=== PATIENT | male | born 1950 | race Caucasian/White ===

== ENCOUNTER 2018-02-20 08:04 | Observation (INO) | payer MEDICARE, OTHER ==
--- NOTE | 2018-02-20 08:21 | ED Physician Documentation ---
PD HPI TRUNK INJURY - Stated complaint Stated Complaint: RT SIDE PX/GLF - Chief complaint Chief Complaint: Trauma Ch/Bk - History obtained from History obtained from: Patient, Family - History of Present Illness Location: Posterior chest, Right chest Type of injury: Fall Timing - onset: How many days ago (4) Timing - duration: Days (4) Timing - details: Abrupt onset, Still present Quality: Pain, Spasm, Sharp Improved by: Rest Worsened by: Moving, Palpating Associated symtptoms: No: Weakness, Numbness, Tingling, Swelling, Discoloration , Feel faint, Syncope Where injury occured: Home Similar symptoms before: Has not had sx before Recently seen: Not recently seen - Additional information Additional information: 67-year-old male is visiting the [place] in a RV and 4 nights ago he went to take off his cargo shorts and fell in the RV landing on his right side against the edge of a piece of furniture. He has pain in his right lower rib cage and can hear popping and clicking. He was considering returning home today and decided to delay his travel until he was evaluated. He normally lives in [place]. He has had some coughing and feels he may have coughed up some blood. He has taken some hydrocodone the last 2 mornings but has not been taking aleve or ibuprofen. Review of Systems Constitutional: denies: Fever Eyes: denies: Decreased vision Ears: denies: Ear pain Nose: denies: Rhinorrhea / runny nose, Congestion Throat: denies: Sore throat Cardiac: reports: Chest pain / pressure. denies: Palpitations, Pedal edema, Calf pain Respiratory: reports: Cough, Hemoptysis. denies: Dyspnea GI: denies: Abdominal Pain, Nausea, Vomiting : denies: Dysuria, Frequency Skin: denies: Rash Musculoskeletal: reports: Back pain. denies: Neck pain, Extremity pain PD PAST MEDICAL HISTORY - Present Medications Home Medications: Ambulatory Orders Medication Instructions Recorded Confirmed Atenolol 50 mg PO DAILY 02/20/18 02/20/18 Lovastatin 20 mg PO DAILY 02/20/18 02/20/18 - Allergies Allergies/Adverse Reactions: Allergies Allergy/AdvReac Type Severity Reaction Status Date / Time No Known Drug Allergies Allergy Verified 02/20/18 08:27 PD ED PE NORMAL - Vitals Vital signs reviewed: Yes (hypertensive ) - General General: Alert and oriented X 3, No acute distress, Well developed/nourished - HEENT HEENT: Atraumatic, PERRL, EOMI - Neck Neck: Supple, no meningeal sign, No bony TTP - Cardiac Cardiac: RRR, No murmur - Respiratory Respiratory: No respiratory distress, Other (Rhonchi and crackling in the right lower quadrant with correspondin tenderness to the right lateral chest wall and audible clicking of fractured ribs. ) - Abdomen Abdomen: Soft, Non tender - Back Back: No CVA TTP, No spinal TTP - Derm Derm: Normal color, Warm and dry, No rash - Extremities Extremities: No deformity, No edema - Neuro Neuro: Alert and oriented X 3, is manager 2-12 intact, No motor deficit, No sensory deficit Eye Opening: Spontaneous Motor: Obeys Commands Verbal: Oriented GCS Score: 15 - Psych Psych: Normal mood, Normal affect Results - Vitals Vitals: Vital Signs - 24 hr 02/20/18 02/20/18 08:08 09:53 Temperature 36.4 C L Heart Rate 58 L 57 L Respiratory 18 20 Rate Blood Pressure 208/90 H 166/76 H O2 Saturation 94 96 Oxygen O2 Source Room air - Labs Labs: Laboratory Tests 02/20/18 02/20/18 02/20/18 08:30 08:30 08:30 WBC 10.2 RBC 3.57 L Hgb 13.4 L Hct 38.5 L MCV 107.6 H MCH 37.6 H MCHC 35.0 RDW 14.9 Plt Count 143 MPV 9.6 Neut # (Auto) 8.5 H Lymph # (Auto) 0.6 L [place] # (Auto) 0.9 Eos # (Auto) 0.1 Baso # (Auto) 0.0 Absolute Nucleated RBC 0.00 Nucleated RBC % 0.0 Sodium 131 L Potassium 3.5 Chloride 97 L Carbon Dioxide 25 Anion Gap 9.0 BUN 16 Creatinine 0.8 Estimated GFR (MDRD) 96 Glucose 155 H Calcium 9.2 Total Bilirubin 1.5 H AST 48 H ALT 34 Alkaline Phosphatase 86 Troponin I < 0.04 Total Protein 7.5 Albumin 3.8 Globulin 3.7 Albumin/Globulin Ratio 1.0 Lipase 67 H - Rads (name of study) CT chest with Radiology: Prelim report reviewed (Impression: Right sixth to 11th displaced rib fractures because of causing small to moderate right middle lobe pneumothorax in the right chest wall subcutaneous emphysema. Right middle lobe atelectasis and small pleural effusion.), Discussed with rads, EMP read indepedently, See rad report PD MEDICAL DECISION MAKING - ED course Complexity details: reviewed results, re-evaluated patient, considered differential, d/w patient, d/w family ED course: 67 y/o male with a fall 4 days ago has sub-q air, rib fractures, and hemo- pneumothorax. Dr. Nguyen is consulted in the case at 09:54 and will come to the hospital to evaluate. The patient does not appear to be in distress and has significant findings on CT. He is admitted to observation under the care of the capable surgeon. - Sepsis Event Vital Signs: Vital Signs - 24 hr 02/20/18 02/20/18 08:08 09:53 Temperature 36.4 C L Heart Rate 58 L 57 L Respiratory 18 20 Rate Blood Pressure 208/90 H 166/76 H O2 Saturation 94 96 Oxygen O2 Source Room air Departure - Departure Disposition: ED Place in Observation Clinical Impression: Traumatic pneumohemothorax Qualifiers: Encounter type: initial encounter Qualified Code(s): S27.2XXA - Traumatic hemopneumothorax, initial encounter Rib fractures Qualifiers: Encounter type: initial encounter Rib fracture type: multiple ribs Fracture type: closed Laterality: right Qualified Code(s): S22.41XA - Multiple fractures of ribs, right side, initial encounter for closed fracture Discharge Date/Time: 02/20/18 10:58
[2018-02-20] MEDS ORDERED: IOPAMIDOL-300 100 ML VIAL ONE (08:36)
[2018-02-20 09:26] LABS: ALBUMIN 3.8 g/dL (3.2-5.5); BILIRUBIN,TOTAL 1.5 mg/dL (0.2-1.0); CALCIUM 9.2 mg/dL (8.5-10.3); CREATININE 0.8 mg/dL (0.6-1.2); TOTAL PROTEIN 7.5 g/dL (6.7-8.2)
[2018-02-20 09:29] LABS: BASOPHILS % (AUTO) 0.3 %; EOSINOPHILS # (AUTO) 0.1 10^3/uL (0.0-0.7); EOSINOPHILS % (AUTO) 0.8 %; HGB - HEMOGLOBIN 13.4 g/dL (14.0-18.0); LYMPHOCYTES # (AUTO) 0.6 10^3/uL (1.5-3.5); LYMPHOCYTES % (AUTO) 6.1 %; MEAN CORPUSCULAR HEMOGLOBIN 37.6 pg (27.0-31.0); MEAN CORPUSCULAR VOLUME 107.6 fL (80.0-94.0); MEAN PLATELET VOLUME 9.6 fL (7.4-11.4); MONOCYTES # (AUTO) 0.9 10^3/uL (0.0-1.0); MONOCYTES % (AUTO) 9.3 %; NEUTROPHILS # (AUTO) 8.5 10^3/uL (1.5-6.6); NEUTROPHILS % (AUTO) 83.5 %; PLT - PLATELET COUNT 143 10^3/uL (130-450); RED BLOOD COUNT 3.57 10^6/uL (4.70-6.10); RED CELL DISTRIBUTION WIDTH 14.9 % (12.0-15.0); WHITE BLOOD COUNT 10.2 x10^3/uL (4.8-10.8)
[2018-02-20] MEDS ORDERED: IOPAMIDOL-300 100 ML VIAL IVP ONE ×2 (09:54→10:09)
[2018-02-20] MEDS ORDERED: SODIUM CHLORIDE FLUSH 0.9% 10 ML SYRINGE IVP PRN (10:08)
[2018-02-20] MEDS ORDERED: oxyCODONE 5 MG TABLET PO PRN (10:11)
--- NOTE | 2018-02-20 10:12 | CT Report ---
Procedure Date: 02/20/2018 Accession Number: [id number] / [id number] Procedure: CT - Chest W/ CPT Code: FULL RESULT: EXAM: CT CHEST EXAM DATE: 02/20/2018 09:45 AM. CLINICAL HISTORY: Fall posterior rib fractures ? sub-q air. COMPARISONS: None. TECHNIQUE: Routine helical CT imaging was performed through the chest. IV contrast: 100 mL Isovue-300. Reconstructions: Coronal and sagittal. In accordance with CT protocol optimization, one or more of the following dose reduction techniques were utilized for this exam: automated exposure control, adjustment of mA and/or KV based on patient size, or use of iterative reconstructive technique. FINDINGS: Right lower neck and chest wall subcutaneous emphysema. Small to moderate right middle lobe pneumothorax and atelectasis due to displaced fractures of the right 6th-11th lateral ribs. Small right pleural effusion. Left chest clear. No mediastinal hematoma. Upper abdomen grossly unremarkable. IMPRESSION: Right 6th-11th displaced rib fractures, causing small to moderate right middle lobe pneumothorax and right chest wall subcutaneous emphysema. Right middle lobe atelectasis and small pleural effusion. RADIA
[2018-02-20] MEDS ORDERED: LIDOCAINE PATCH 5% TOP STA (10:13)
--- NOTE | 2018-02-20 10:21 | HISTORY & PHYSICAL EXAMINATION ---
Chief Complaint - Chief Complaint Chief Complaint: right sided rib fractures History of Present Illness - History of Present Illness HPI Comment/Other: This is a 67-year-old male who presented to the emergency department today after falling from a standing position 4 days ago. He states that he was in his RV and was taking off his shorts and lost his balance falling backwards and hitting his posterior thorax against a railing. He denies hitting any other part of his body. He denies any loss of consciousness. He has had progressive right sided back pain since his injury and eventually came to the emergency department today. He also complains of a persistent cough which is irritating him. He denies any shortness of breath or difficulty breathing. Upon evaluation in the emergency department he underwent a CT scan of the chest which demonstrates posterior right-sided rib fractures 6 through 11 with a moderately sized pneumothorax and a small hemothorax.Upon my evaluation the patient he has resting in bed comfortably in the sitting position without any shortness of breath. History - Past Medical History Cardiovascular: reports: Hypertension, High cholesterol, Pulmonary embolism GI: reports: Pancreatitis Other Past Medical History: throat cancer - Past Surgical History General: reports: Colonoscopy HEENT: reports: Cataracts Meds/Allgy - Home Medications Home Medications: Ambulatory Orders Medication Instructions Recorded Confirmed Atenolol 50 mg PO DAILY 02/20/18 02/20/18 Lovastatin 20 mg PO DAILY 02/20/18 02/20/18 - Allergies Allergies/Adverse Reactions: Allergies Allergy/AdvReac Type Severity Reaction Status Date / Time No Known Drug Allergies Allergy Verified 02/20/18 08:27 Review of Systems - Constitutional Constitutional: denies: Fatigue, Weakness - Cardiovascular Cariovascular: denies: Lightheadedness - Respiratory Respiratory: reports: Cough, Sputum production - Gastrointestinal Gastrointestinal: denies: Abdominal pain - Musculoskeletal Musculoskeletal: reports: Back pain - Neurological Neurological: denies: General weakness - Psychiatric Psychiatric: denies: Depression Exam - Vital Signs Reviewed Vital Signs: Yes Vital Signs: Vital Signs x48h Temp Pulse Resp BP Pulse Ox 02/20/18 09:53 57 L 20 166/76 H 96 02/20/18 08:08 36.4 C L 58 L 18 208/90 H 94 - Physical Exam General Appearance: positive: No acute distress Respiratory: positive: Other (Slightly diminished breath sounds on the right with associated crackles. Left-sided breath sounds normal.No palpable crepitance to the right chest wall.) Cardiovascular: positive: Regular rate & rhythm Peripheral Pulses: positive: 2+ Abdomen: positive: Non-tender Extremities: positive: No pedal edema Neurologic/Psychiatric: positive: Oriented x3 Conclusion/Plan - Problem List (1) Rib fractures Conclusion/Plan: The patient will be admitted for observation. Will obtain a chest x-ray now and one tomorrow to monitor the pnuemothorax for progression. As this is been 4 days since his injury and he does not display any signs of difficulty breathing or shortness of breath tube thoracostomy is not warranted at this time. If there is no progression of the pneumothorax on CXR he will not require thoracostomy tube placement, however, if progression occurs this will be performed. Additionally he will be provided Multimodal analgesics for pain control in the form of oxycodone, IV Tylenol, Toradol and lidocaine patch.. Respiratory therapy has been contacted and will instruct the patient on appropriate insentive spirometry use as well as obtaining a vital capacity for baseline analysis. The patient will be placed on supplemental oxygen. I explained to the patient that if his chest x-ray demonstrates an enlarging pneumothorax thoracostomy tube placement will be performed. Qualifiers: Encounter type: initial encounter Rib fracture type: multiple ribs Fracture type: closed Laterality: right Qualified Code(s): S22.41XA - Multiple fractures of ribs, right side, initial encounter for closed fracture - Lab Results Lab results reviewed: Yes Fish Bones: 02/20/18 08:30 02/20/18 08:30
[2018-02-20] MEDS: ACETAMINOPHEN 1,000 MG/100 ML 100 ML IV SCH ×3 (11:30→23:48)
--- NOTE | 2018-02-20 12:21 | XRAY Report ---
Procedure Date: 02/20/2018 Accession Number: [id number] / [id number] Procedure: XR - Chest 1 View X-Ray CPT Code: 46981 FULL RESULT: EXAM: CHEST RADIOGRAPHY, PORTABLE ONE VIEW EXAM DATE: 02/20/2018 10:56 AM. CLINICAL HISTORY: Evaluation of pneumothorax in a 67-year-old male post recent fall. COMPARISON: CT chest w/ 02/20/2018 9:39 AM. TECHNIQUE: 1047 hr AP upright portable view. FINDINGS: Lungs/Pleura: Small right pleural effusion/hemothorax again noted with infiltrate/atelectasis right lung base. No definite pneumothorax noted currently. Left lung remains clear. Mediastinum: Heart size upper normal without pulmonary vascular congestion or adenopathy. Other: Trachea is midline. Mildly displaced right lower lateral rib fractures again noted, better observed on CT. Moderate subcutaneous emphysema right chest wall, similar to earlier study. Right-sided Port-A-Cath in stable and satisfactory position. IMPRESSION: No demonstrated pneumothorax on conventional radiography. Persistent small right pleural effusion/hemothorax with adjacent multiple rib fractures and subcutaneous emphysema. RADIA
[2018-02-20] MEDS: KETOROLAC 10 MG TABLET PO PRN ×2 (15:54→21:12)
[2018-02-20] MEDS: SODIUM CHLORIDE FLUSH 0.9% 10 ML SYRINGE IVP SCH ×2 (15:54→23:48)
[2018-02-20] MEDS ORDERED: ATORVASTATIN 10 MG TABLET PO SCH (21:00)
[2018-02-21] MEDS: ACETAMINOPHEN 1,000 MG/100 ML 100 ML IV SCH (06:10)
[2018-02-21] MEDS: SODIUM CHLORIDE FLUSH 0.9% 10 ML SYRINGE IVP SCH (08:11)
[2018-02-21] MEDS ORDERED: POLYETHYLENE GLYCOL 3350 17 GM PACKET PO SCH (09:00)
[2018-02-21] MEDS ORDERED: ATORVASTATIN 10 MG TABLET PO SCH (09:00)
[2018-02-21] MEDS ORDERED: ATENOLOL 25 MG TABLET PO SCH (09:00)
--- NOTE | 2018-02-21 10:24 | Discharge Plan ---
Discharge Plan Disposition: Home, Self Care Condition: Good Prescriptions: oxyCODONE [Roxicodone] 5 mg PO Q4HR PRN #30 tablet PRN Reason: Pain Ketorolac [Toradol] 10 mg PO Q6HR PRN #20 tablet PRN Reason: Pain Lidocaine Patch 5% [Lidoderm Patch] 1 patch TOP DAILY PRN #10 patch PRN Reason: Pain Polyethylene Glycol 3350 [Miralax] 17 gm PO DAILY #30 packet Diet: Regular Activity Restrictions: Additional Comments (no heavy lifting or strenuous activity 6 weeks) Shower Restrictions: No Driving Restrictions: Yes (not while on narcotics) Instruction Topics: Fx Rib Additional Instructions or Follow Up instructions: Return to ER if you develop fever, chills, coughing up thick sputum, worsening chest pain or increasing difficulty breathing. Continue to use incentive spirometry every hour while awake for next 4 weeks. No strenuous activity or heavy lifting for 6 weeks. Prescription for lidocaine patch, Ketorolac and Oxycodone provided. Also take Tylenol 1000 mg PO Q 6 hours and Ibuprofen 800 mg PO Q 8 hours as needed for pain. Follow up with primary care provider in 2-4 weeks No Smoking: If you smoke, Please STOP! Call for help.
[2018-02-21] MEDS ORDERED: LIDOCAINE PATCH 5% TOP PRN (10:28)
--- NOTE | 2018-02-21 12:01 | XRAY Report ---
Procedure Date: 02/21/2018 Accession Number: [id number] / [id number] Procedure: XR - Chest 1 View X-Ray CPT Code: 26194 FULL RESULT: EXAM: CHEST RADIOGRAPHY EXAM DATE: 02/21/2018 09:30 AM. CLINICAL HISTORY: Pneomothorax. COMPARISON: 02/20/2018. TECHNIQUE: 1 view. FINDINGS: Lungs/Pleura: Again seen is a right pleural effusion. Previously seen pneumothorax on CT 02/20/2018 is not appreciated on current x-ray. Mediastinum: Stable cardiac silhouette. Other: Multiple displaced right rib fractures. Right lower neck and chest wall subcutaneous emphysema. IMPRESSION: Multiple displaced right rib fractures and pleural effusion. Subcutaneous emphysema. No pneumothorax appreciated radiographically. RADIA
--- NOTE | 2018-02-21 12:13 | DISCHARGE SUMMARY ---
Discharge Summary Admit Date: 02/20/18 Discharge Date: 02/21/18 Discharging Provider: Patrick Condition at Discharge: Good Discharge Disposition: 01 Home, Self Care - DIAGNOSES Admission Diagnoses: rib fractures, hemopneumothorax - HPI History of Present Illness: This is a 67-year-old gentleman who presented to the emergency department yesterday for days after falling and hitting his posterior right sided chest. Evaluation in the emergency department demonstrated a hemopneumothorax with fractured posterior ribs 6 through 11 on the right. On my evaluation of the patient he was noted to be without any respiratory distress. A subsequent chest x-ray demonstrated no pneumothorax on plain film. He was admitted to the surgical service provided multimodal analgesics, and consultation to RT was performed. He was instructed how to use his incentive spirometer and vital Capacity was performedand noted to be 1.5 L. - HOSPITAL COURSE Hospital Course: Upon admission it was decided not to perform tube thoracostomy due to the length of time since his trauma (4 days), the patient was not in any respiratory distress and this was proved to be an occult pneumothorax on imaging. He was placed on supplemental oxygenation and a repeat chest x-ray was performed on hospital day #1 which did not not show any increase in the pneumothorax. The patient stated that his pain was markedly improved on Toradol and Tylenol alone. The patient was discharged home with instructions to continue use of incentive spirometry and to avoid any strenuous activity or heavy lifting for 6 weeks. He was instructed to follow-up with his primary care provider in 2-4 weeks. He was also instructed to return to the emergency department should he develop any worsening shortness of breath or dyspnea on exertion, fevers, chills, or purulent productive cough. He was provided with prescriptions for Toradol, oxycodone, lidocaine patch and MiraLAX. - ALLERGIES Allergies/Adverse Reactions: Allergies Allergy/AdvReac Type Severity Reaction Status Date / Time No Known Drug Allergies Allergy Verified 02/20/18 08:27 - MEDICATIONS Home Medications: Ambulatory Orders Medication Instructions Recorded Confirmed Aspirin [Adult Aspirin] 81 mg PO DAILY 02/20/18 02/20/18 Atenolol 50 mg PO DAILY 02/20/18 02/20/18 Cholecalciferol (Vitamin D3) 2,000 unit PO DAILY 02/20/18 02/20/18 [Vitamin D3] Cyanocobalamin (Vitamin B-12) 1,000 mcg PO DAILY 02/20/18 02/20/18 [Vitamin B-12] Lovastatin 20 mg PO DAILY 02/20/18 02/20/18 Ketorolac [Toradol] 10 mg PO Q6HR PRN #20 tablet 02/21/18 Lidocaine Patch 5% [Lidoderm Patch] 1 patch TOP DAILY PRN #10 patch 02/21/18 Polyethylene Glycol 3350 [Miralax] 17 gm PO DAILY #30 packet 02/21/18 oxyCODONE [Roxicodone] 5 mg PO Q4HR PRN #30 tablet 02/21/18 - PHYSICAL EXAM AT DISCHARGE General Appearance: positive: No acute distress Respiratory: positive: Other (diminished breath sounds on the right with mild crackles) Cardiovascular: positive: Regular rate & rhythm Extremities: positive: No pedal edema Neurologic/Psychiatric: positive: Oriented x3 - LABS Result Diagrams: 02/20/18 08:30 02/20/18 08:30 - TIME SPENT Time Spent in Discharge (Minutes): 30
[2018-02-21 12:51] VITALS: BP 180/73
== END 2018-02-21 12:55 | disposition home or self-care (01) ==
LOC: ED 08:04 → MS2 10:08
PROVIDERS: ADMIT Surgery; ATTEND Surgery
DX: S27.2XXA Traumatic hemopneumothorax, initial encounter (principal); S22.41XA Multiple fractures of ribs, right side, initial encounter for closed fracture; W22.8XXA Striking against or struck by other objects, initial encounter; Y93.E8 Activity, other personal hygiene; Y92.029 Unspecified place in mobile home as the place of occurrence of the external cause; I10 Essential (primary) hypertension; K85.90 Acute pancreatitis without necrosis or infection, unspecified; E78.00 Pure hypercholesterolemia, unspecified; Z79.899 Other long term (current) drug therapy; Z86.711 Personal history of pulmonary embolism; Z85.819 Personal history of malignant neoplasm of unspecified site of lip, oral cavity, and pharynx
CPT/HCPCS: 36415; 71045; 71260; 80053; 83690; 84484; 85025; 96365; 96366; 96376; 99284; A9270; G0378; J0131; Q9967